=== PATIENT | female | born 1965 | race Asian ===

== ENCOUNTER 2020-10-06 09:45 | Emergency (ER) | payer OTHER ==
[2020-10-06 10:06] VITALS: BP 159/80; PULSE 85; TEMP 97.8; BMI 33.0
== END 2020-10-06 11:53 | disposition home or self-care (01) ==
LOC: FER 09:45
DX: M79.604 Pain in right leg (principal); R22.41 Localized swelling, mass and lump, right lower limb
CPT/HCPCS: 93971-TC; 99284-25